=== PATIENT | female | born 1995 | race Caucasian/White ===

== ENCOUNTER 2017-03-28 08:38 | Outpatient (CLI) | payer OTHER ==
[~2017-03-28] VITALS: Ht 165.1 cm; Wt 82.7 kg
== END 2017-03-28 09:11 | disposition home or self-care (01) ==
LOC: LDOP 08:38
PROVIDERS: ATTEND Obstetrics & Gynecology
DX: O36.8120 Decreased fetal movements, second trimester, not applicable or unspecified (principal); Z3A.27 27 weeks gestation of pregnancy
CPT/HCPCS: 59025; 99201; G0463

== ENCOUNTER 2017-05-08 09:25 | Outpatient (CLI) | payer OTHER | END 2017-05-08 13:32 | disposition home or self-care (01) | LOC: LDOP 09:25 | PROVIDERS: ATTEND Obstetrics & Gynecology | DX: O36.8130 Decreased fetal movements, third trimester, not applicable or unspecified (principal); Z3A.33 33 weeks gestation of pregnancy | CPT/HCPCS: 59025; 76819; 99201; G0463 ==

== ENCOUNTER 2017-05-26 07:00 | Outpatient (CLI) | payer OTHER ==
[~2017-05-26] VITALS: Ht 162.6 cm; Wt 86.3 kg
[2017-05-26 07:14] VITALS: BP 119/77
[2017-05-26 08:12] LABS: AMNISURE POSITIVE (NEGATIVE)
[2017-05-26] MEDS: LACTATED RINGERS 1,000 ML IV SCH ×2 (10:09→12:37)
[2017-05-26] MEDS ORDERED: BETAMETHASONE 6 MG/ML, 5ML IM ONE ×2 (11:29→11:30)
== END 2017-05-26 16:00 | disposition home or self-care (01) ==
LOC: LDOP 07:00
PROVIDERS: ATTEND Obstetrics & Gynecology
DX: Z3A.35 35 weeks gestation of pregnancy (principal); O42.913 Preterm premature rupture of membranes, unspecified as to length of time between rupture and onset of labor, third trimester
CPT/HCPCS: 59025; 76815; 84112; 87081; 89060; 96360; 96361; 99211; J0702; J7120; G0463; Q0114

== ENCOUNTER 2017-05-27 11:31 | Inpatient (IN) | payer OTHER ==
[~2017-05-27] VITALS: Ht 162.6 cm; Wt 86.3 kg
[2017-05-27 11:37] VITALS: BP 105/59
[2017-05-27] MEDS ORDERED: BETAMETHASONE 6 MG/ML, 5ML IM ONE (12:00)
[2017-05-27] MEDS ORDERED: NEWBORN KIT ONE (17:29)
[2017-05-27] MEDS ORDERED: OXYTOCIN 30U/ 0.9% NaCL 500ML 500 ML IV SCH (17:33)
[2017-05-27] MEDS ORDERED: SODIUM CITRATE/CITRIC ACID 30 ML UDC ONE (17:33)
[2017-05-27] MEDS ORDERED: LACTATED RINGERS 1,000 ML IV SCH ×2 (17:33→18:00)
[2017-05-27] MEDS ORDERED: METOCLOPRAMIDE 5 MG/ML, 2ML ONE (17:34)
[2017-05-27] MEDS ORDERED: OXYTOCIN 30U/ 0.9% NaCL 500ML 500 ML ONE (17:34)
[2017-05-27 17:57] LABS: BASOPHILS # (AUTO) 0.03 x10^3/uL (0-0.1); BASOPHILS % (AUTO) 0 % (0-1); EOSINOPHILS % (AUTO) 0 % (1-7); LYMPHOCYTES # (AUTO) 1.06 x10^3/uL (1-3.4); LYMPHOCYTES % (AUTO) 10 % (22-44); MD NO; MEAN CORPUSCULAR HEMOGLOBIN 30.3 pg (27.0-34.8); MEAN CORPUSCULAR HGB CONC 33.9 g/dL (32.4-35.8); MEAN CORPUSCULAR VOLUME 89.2 fL (80-100); MEAN PLATELET VOLUME 8.6 fL (7.4-10.4); MONOCYTES # (AUTO) 0.33 x10^3/uL (0.2-0.8); MONOCYTES % (AUTO) 3 % (2-9); NEUTROPHILS % (AUTO) 87 % (42-75); PLATELET COUNT 218 x10^3/uL (130-400); RED BLOOD COUNT 3.98 x10^6/uL (3.82-5.3); RED CELL DISTRIBUTION WIDTH 12.6 % (9.6-15.2)
[2017-05-27] MEDS ORDERED: SODIUM CHLORIDE 0.9% PF 10ML ONE ×2 (17:58)
[2017-05-27] MEDS ORDERED: ONDANSETRON 2MG/ML, 2ML ONE (17:58)
[2017-05-27] MEDS ORDERED: CEFAZOLIN 1,000 MG ONE (17:58)
[2017-05-27] MEDS ORDERED: OXYTOCIN 10 UNITS/ML, 1ML ONE (17:58)
[2017-05-27] MEDS ORDERED: FENTANYL PF 100 MCG/2ML ONE (17:58)
[2017-05-27] MEDS ORDERED: SODIUM CITRATE/CITRIC ACID 30 ML UDC PO ONE (18:00)
[2017-05-27] MEDS ORDERED: METOCLOPRAMIDE 5 MG/ML, 2ML IV ONE (18:00)
[2017-05-27] MEDS ORDERED: LACTATED RINGERS 1,000 ML IVBOLUS ONE (18:00)
[2017-05-27] MEDS ORDERED: HYDROmorphone 2 MG/ML, 1ML ONE (18:15)
[2017-05-27] MEDS: LACTATED RINGERS 1,000 ML IV SCH ×2 (19:10)
[2017-05-27] MEDS: OXYTOCIN 30U/ 0.9% NaCL 500ML 500 ML IV SCH (19:10)
[2017-05-27] MEDS ORDERED: DOCUSATE 100 MG CAPSULE PO PRN (19:30)
[2017-05-27] MEDS ORDERED: morphine SULFATE 10 MG/ML, 1ML IVPush PRN ×2 (19:30)
[2017-05-27] MEDS ORDERED: ACETAMINOPHEN 325 MG TABLET PO PRN (19:30)
[2017-05-27] MEDS ORDERED: METHYLERGONOVINE 0.2 MG/ML IM PRN (19:30)
[2017-05-27] MEDS ORDERED: ONDANSETRON 2MG/ML, 2ML IV PRN (19:30)
[2017-05-27] MEDS ORDERED: CARBOPROST TROMETHAMINE 250 MCG/ML, 1ML IM PRN (19:30)
[2017-05-27] MEDS ORDERED: MISOPROSTOL 200 MCG TABLET PR PRN (19:30)
[2017-05-27] MEDS ORDERED: IBUPROFEN 600 MG TABLET ONE (20:28)
[2017-05-27] MEDS ORDERED: OXYcodone/APAP 5/325MG TABLET ONE (20:29)
[2017-05-27] MEDS: OXYcodone/APAP 5/325MG TABLET PO PRN (20:30)
[2017-05-27] MEDS: IBUPROFEN 600 MG TABLET PO PRN (20:30)
[2017-05-27 21:10] VITALS: BP 123/82
[2017-05-28] VITALS: BP 111/63
[2017-05-28] MEDS: IBUPROFEN 600 MG TABLET PO PRN ×4 (02:40→22:37)
[2017-05-28] MEDS: LACTATED RINGERS 1,000 ML IV SCH ×2 (03:10→03:14)
[2017-05-28] MEDS: OXYTOCIN 30U/ 0.9% NaCL 500ML 500 ML IV SCH (03:15)
[2017-05-28] MEDS: OXYcodone/APAP 5/325MG TABLET PO PRN ×6 (03:53→21:30)
[2017-05-28 03:57] VITALS: BP 115/70
[2017-05-28 05:45] LABS: MEAN CORPUSCULAR HEMOGLOBIN 30.2 pg (27.0-34.8); MEAN CORPUSCULAR HGB CONC 33.9 g/dL (32.4-35.8); MEAN PLATELET VOLUME 8.8 fL (7.4-10.4); PLATELET COUNT 228 x10^3/uL (130-400); RED BLOOD COUNT 3.91 x10^6/uL (3.82-5.3); RED CELL DISTRIBUTION WIDTH 12.6 % (9.6-15.2)
[2017-05-28 07:06] LABS: BASOPHILS # (AUTO) 0.05 x10^3/uL (0-0.1); BASOPHILS % (AUTO) 0 % (0-1); EOSINOPHILS % (AUTO) 0 % (1-7); LYMPHOCYTES # (AUTO) 1.43 x10^3/uL (1-3.4); LYMPHOCYTES % (AUTO) 9 % (22-44); MD MORPH REVIEW ONLY; MONOCYTES # (AUTO) 1.23 x10^3/uL (0.2-0.8); MONOCYTES % (AUTO) 8 % (2-9); NEUTROPHILS % (AUTO) 82 % (42-75)
[2017-05-28 07:28] LABS: <PLATELET ESTIMATE> ADEQUATE; <PLT MORPHOLOGY> NORMAL PLT MORPH
[2017-05-28] MEDS ORDERED: PRENATAL VIT/IRON/FA 1 EACH TABLET PO SCH (09:00)
[2017-05-28 09:20] VITALS: BP 108/68
[2017-05-28 12:30] VITALS: BP 116/71
[2017-05-28] MEDS ORDERED: METHYLERGONOVINE 0.2 MG/ML IM PRN (16:00)
[2017-05-28] MEDS ORDERED: OXYcodone/APAP 5/325MG TABLET PO PRN (16:00)
[2017-05-28] MEDS ORDERED: MEASLES,MUMPS&RUBELLA VACC/PF 0.5 ML SQ-VACC PRN (16:00)
[2017-05-28] MEDS ORDERED: MORPHINE SULFATE 4 MG/ML, 1ML IVPush PRN ×2 (16:00)
[2017-05-28] MEDS ORDERED: MISOPROSTOL 200 MCG TABLET PR ONE (16:00)
[2017-05-28] MEDS ORDERED: DIPH,PERTUSS(ACELL),TET VAC/PF NC IM-VACC PRN (16:00)
[2017-05-28 19:05] VITALS: BP 111/67
[2017-05-28] MEDS: DOCUSATE 100 MG CAPSULE PO PRN (21:30)
[2017-05-29] MEDS: OXYcodone/APAP 5/325MG TABLET PO PRN ×3 (02:40→15:54)
[2017-05-29] MEDS ORDERED: IBUP-1222 PO (05:42)
[2017-05-29] MEDS ORDERED: OXYC-302 PO (05:42)
[2017-05-29] MEDS ORDERED: SENN-52 PO (05:43)
[2017-05-29 07:45] VITALS: BP 115/79
[2017-05-29] MEDS: IBUPROFEN 600 MG TABLET PO PRN ×2 (08:10→15:54)
[2017-05-29] MEDS: DOCUSATE 100 MG CAPSULE PO PRN (08:13)
[2017-05-29] MEDS ORDERED: PRENATAL VIT/IRON/FA 1 EACH TABLET PO SCH (09:00)
== END 2017-05-29 16:44 | disposition home or self-care (01) | DRG 765 ==
LOC: LDOP 11:31 → LDIP 12:31 → OBSVTOIN 17:30 → LDIP 17:38 → NICU 18:50 → 2NW 21:02 → UNDODISIN 05-28 15:05
PROVIDERS: ADMIT Obstetrics & Gynecology; ATTEND Obstetrics & Gynecology
PROC: 10D00Z1 Extraction of Products of Conception, Low, Open Approach (ICD-10-PCS; principal; 2017-05-28)
PROC: 3E0234Z Introduction of Serum, Toxoid and Vaccine into Muscle, Percutaneous Approach (ICD-10-PCS; 2017-05-28)
DX: O76 Abnormality in fetal heart rate and rhythm complicating labor and delivery (principal); O60.14X0 Preterm labor third trimester with preterm delivery third trimester, not applicable or unspecified; O77.0 Labor and delivery complicated by meconium in amniotic fluid; Z37.0 Single live birth; Z3A.35 35 weeks gestation of pregnancy; Z23 Encounter for immunization
CPT/HCPCS: 36415; 76819; 82803; 85025; 86850; 86900; 88307; 90715; G0378; J0690; J0702; J2405; J3010; J2590; J7120

== ENCOUNTER 2018-03-14 20:29 | Emergency (ER) | payer MEDICAID, OTHER ==
[~2018-03-14] VITALS: Ht 165.1 cm; Wt 89.8 kg
[~2018-03-14 20:29] MED LIST: IBUP-1222 PO; OXYC-302 PO; SENN-52 PO
[2018-03-14] MEDS ORDERED: ACETAMINOPHEN 500 MG TABLET ONE (20:35)
[2018-03-14] MEDS ORDERED: ACETAMINOPHEN 325 MG TABLET ONE (20:44)
[2018-03-14] MEDS ORDERED: ACETAMINOPHEN 325 MG TABLET PO ONE (21:00)
[2018-03-14 21:14] LABS: BASOPHILS # (AUTO) 0.05 x10^3/uL (0-0.1); BASOPHILS % (AUTO) 1 % (0-1); EOSINOPHILS # (AUTO) 0.05 x10^3/uL (0-0.4); EOSINOPHILS % (AUTO) 1 % (1-7); LYMPHOCYTES # (AUTO) 2.07 x10^3/uL (1-3.4); LYMPHOCYTES % (AUTO) 26 % (22-44); MD NO; MEAN CORPUSCULAR HEMOGLOBIN 30.6 pg (27.0-34.8); MEAN CORPUSCULAR HGB CONC 34.3 g/dL (32.4-35.8); MEAN PLATELET VOLUME 9.1 fL (7.4-10.4); MONOCYTES # (AUTO) 0.82 x10^3/uL (0.2-0.8); MONOCYTES % (AUTO) 10 % (2-9); NEUTROPHILS # (AUTO) 4.98 x10^3/uL (1.8-6.8); NEUTROPHILS % (AUTO) 63 % (42-75); PLATELET COUNT 248 x10^3/uL (130-400); RED BLOOD COUNT 4.22 x10^6/uL (3.82-5.3); RED CELL DISTRIBUTION WIDTH 13.3 % (9.6-15.2)
[2018-03-14] MEDS ORDERED: PROCHLORPERAZINE 5 MG/ML, 2ML ONE (21:20)
[2018-03-14] MEDS ORDERED: DIPHENHYDRAMINE 50 MG/ML, 1ML ONE (21:20)
[2018-03-14 21:21] LABS: ALANINE AMINOTRANSFERASE 23 U/L (12-78); ALBUMIN 2.8 g/dL (3.4-5.0); ANION GAP 7 mmol/L (5-15); CALCIUM 8.5 mg/dL (8.5-10.1); CHLORIDE 109 mmol/L (98-107)
--- NOTE | 2018-03-14 21:22 | NUR ---
IV ACCESS OBTAINED. PT MEDICATED PER MAY.
[2018-03-14 21:27] LABS: ALKALINE PHOSPHATASE 75 U/L (45-117); BILIRUBIN,TOTAL 0.2 mg/dL (0.2-1.0); TOTAL PROTEIN 6.6 g/dL (6.4-8.2)
[2018-03-14] MEDS ORDERED: DIPHENHYDRAMINE 50 MG/ML, 1ML IVPush ONE (21:30)
[2018-03-14] MEDS ORDERED: PROCHLORPERAZINE 5 MG/ML, 2ML IVPush ONE (21:30)
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
--- NOTE | 2018-03-14 21:53 | NUR ---
PT STATES THAT SHE "DOES NOT LIKE THE FEELING OF THE MEDICATION". STATES "I FEEL BETTER AND I WANT TO GO HOME RIGHT NOW". DR AHUMADA NOTIFIED OF PT WISHES TO LEAVE.
--- NOTE | 2018-03-14 22:16 | NUR ---
PT D/C WITH D/C SUMMARY. ALL QUESTIONS ANSWERED. PT STATES THAT HER HEADACHE IS GONE AND SHE FEELS BETTER. PT DENIES ANY OTHER NEEDS PERTAINING TO THIS VISIT. PT D/C HOME IN CARE OF HER AND AMULATES TO REGISTRATION DESK WITH STEADY GAIT.
[2018-03-14 22:17] VITALS: BP 144/79
== END 2018-03-14 22:19 | disposition home or self-care (01) ==
LOC: ED 22:13
DX: O26.892 Other specified pregnancy related conditions, second trimester (principal); R51 Headache; Z3A.20 20 weeks gestation of pregnancy
CPT/HCPCS: 36415; 80053; 85025; 96374; 96375; 99283; J0780; J1200

== ENCOUNTER 2018-07-21 18:45 | Emergency (ER) | payer MEDICAID ==
[~2018-07-21] VITALS: Ht 165.1 cm; Wt 85.9 kg
[2018-07-21 18:50] VITALS: BP 111/77
[2018-07-21] MEDS ORDERED: LIDOCAINE-MPF 1%, 5ML ONE (19:11)
[2018-07-21] MEDS ORDERED: LIDOCAINE-MPF 1%, 5ML INFIL ONE (19:30)
[2018-07-21] MEDS ORDERED: BACITRACIN ZINC OINT 500U/GM, 0.9 GM ONE (19:35)
== END 2018-07-21 19:45 | disposition home or self-care (01) ==
LOC: ED 19:00
DX: S61.211A Laceration without foreign body of left index finger without damage to nail, initial encounter (principal); Z98.890 Other specified postprocedural states; W26.0XXA Contact with knife, initial encounter; Y93.89 Activity, other specified; Y92.090 Kitchen in other non-institutional residence as the place of occurrence of the external cause; Y99.8 Other external cause status
CPT/HCPCS: 12001; 99283

== ENCOUNTER 2020-03-31 11:16 | Emergency (ER) | payer MEDICAID, OTHER ==
[~2020-03-31] VITALS: Ht 165.1 cm; Wt 67.6 kg
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
[2020-03-31 13:15] VITALS: BP 95/62
--- NOTE | 2020-03-31 13:20 | NUR ---
D/C INSTRUCTIONS, MEDS & F/U APPT RV'WD WITH PT, SHE VERBALIZES UNDERSTANDING. INSTRUCTED PT TO RETURN TO ED FOR ANY WORSENING OR CONCERNING SYMPTOMS. AMBULATED OUT OF ED WITH FAMILY WITHOUT DIFFICULTY.
== END 2020-03-31 13:27 ==
LOC: ED 12:30
DX: O9A.211 Injury, poisoning and certain other consequences of external causes complicating pregnancy, first trimester (principal); O26.891 Other specified pregnancy related conditions, first trimester; S20.212A Contusion of left front wall of thorax, initial encounter; M25.512 Pain in left shoulder; Z3A.01 Less than 8 weeks gestation of pregnancy; V59.49XA Driver of pick-up truck or van injured in collision with other motor vehicles in traffic accident, initial encounter; Y93.89 Activity, other specified; Y92.488 Other paved roadways as the place of occurrence of the external cause; Y99.8 Other external cause status
CPT/HCPCS: 99282

== ENCOUNTER 2020-11-24 10:40 | Inpatient (IN) | payer MEDICAID, OTHER ==
[~2020-11-24] VITALS: Ht 162.6 cm; Wt 75.0 kg
[~2020-11-24 10:40] MED LIST changes: -OXYC-302 PO; +OXYC1TAB12 PO
[2020-11-24] MEDS ORDERED: LACTATED RINGERS 1,000 ML IVBOLUS ONE (11:00)
[2020-11-24] MEDS ORDERED: SODIUM CITRATE/CITRIC ACID 15 ML UDC ONE (11:00)
[2020-11-24] MEDS ORDERED: NEWBORN KIT ONE (11:00)
[2020-11-24] MEDS ORDERED: METOCLOPRAMIDE 5 MG/ML, 2ML ONE (11:00)
[2020-11-24] MEDS ORDERED: FENTANYL PF 100 MCG/2ML ONE (11:43)
[2020-11-24] MEDS ORDERED: KETOROLAC 30 MG/1 ML ONE (11:44)
[2020-11-24] MEDS: LACTATED RINGERS 1,000 ML IV SCH ×6 (11:44→22:30)
[2020-11-24] MEDS ORDERED: CEFAZOLIN 1,000 MG ONE ×2 (11:45)
[2020-11-24] MEDS ORDERED: OXYTOCIN 10 UNITS/ML, 1ML ONE ×4 (11:45)
[2020-11-24 11:53] LABS: BASOPHILS % (AUTO) 1 % (0-1); EOSINOPHILS % (AUTO) 0 % (1-7); LYMPHOCYTES % (AUTO) 26 % (22-44); MEAN CORPUSCULAR HEMOGLOBIN 31.2 pg (27.0-34.8); MEAN CORPUSCULAR HGB CONC 34.2 g/dL (32.4-35.8); MONOCYTES % (AUTO) 11 % (2-9); NEUTROPHILS % (AUTO) 63 % (42-75); PLATELET COUNT 171 x10^3/uL (130-400); RED BLOOD COUNT 3.81 x10^6/uL (3.82-5.3)
[2020-11-24] MEDS ORDERED: SODIUM CITRATE/CITRIC ACID 30 ML UDC PO ONE (12:00)
[2020-11-24] MEDS ORDERED: METOCLOPRAMIDE 5 MG/ML, 2ML IV ONE (12:00)
[2020-11-24] MEDS ORDERED: ACETAMINOPHEN 325 MG TABLET PO PRN ×2 (12:30→14:00)
[2020-11-24] MEDS ORDERED: MISOPROSTOL 200 MCG TABLET PR PRN (12:30)
[2020-11-24] MEDS ORDERED: MORPHINE SULFATE 4 MG/ML, 1ML IVPush PRN (12:30)
[2020-11-24] MEDS ORDERED: METHYLERGONOVINE 0.2 MG/ML IM PRN (12:30)
[2020-11-24] MEDS ORDERED: morphine SULFATE 10 MG/ML, 1ML IVPush PRN (12:30)
[2020-11-24] MEDS ORDERED: ONDANSETRON 2MG/ML, 2ML IV PRN (12:30)
[2020-11-24] MEDS ORDERED: CARBOPROST TROMETHAMINE 250 MCG/ML, 1ML IM PRN (12:30)
[2020-11-24] MEDS ORDERED: PHENYLEPHRINE 10 MG/ML ONE (13:17)
[2020-11-24] MEDS ORDERED: EPHEDRINE 50 MG/ML, 1ML IVPush PRN (14:00)
[2020-11-24] MEDS ORDERED: OXYcodone 5 MG/5 ML ORAL.SOL UDC PO PRN (14:00)
[2020-11-24] MEDS ORDERED: HYDROmorphone 1 MG/ML, 1ML INJ IVPush PRN (14:00)
[2020-11-24] MEDS ORDERED: DIPHENHYDRAMINE 50 MG/ML, 1ML IVPush PRN (14:00)
[2020-11-24] MEDS ORDERED: FENTANYL PF 100 MCG/2ML IV PRN (14:00)
[2020-11-24] MEDS ORDERED: ONDANSETRON 2MG/ML, 2ML IVPush PRN (14:00)
[2020-11-24] MEDS: OXYTOCIN 30U/ 0.9% NaCL 500ML 500 ML IV SCH ×2 (15:03→22:30)
[2020-11-24 16:00] VITALS: BP 103/69
[2020-11-24] MEDS: SIMETHICONE 80 MG CHEW TAB PO PRN (16:41)
[2020-11-24] MEDS: OXYcodone/APAP 5/325MG TABLET PO PRN ×3 (17:35→22:24)
[2020-11-24 20:00] VITALS: BP 106/62
[2020-11-24] MEDS: DOCUSATE 100 MG CAPSULE PO PRN (20:24)
[2020-11-24] MEDS: KETOROLAC 30 MG/1 ML IVPush SCH (20:24)
[2020-11-24] MEDS ORDERED: CALCIUM CARBONATE 500 MG TAB.CHEW PO PRN (20:30)
[2020-11-24 23:55] VITALS: BP 97/60
[2020-11-25 01:02] LABS: BASOPHILS % (AUTO) 1 % (0-1); EOSINOPHILS % (AUTO) 0 % (1-7); LYMPHOCYTES % (AUTO) 21 % (22-44); MEAN CORPUSCULAR HEMOGLOBIN 31.3 pg (27.0-34.8); MEAN CORPUSCULAR HGB CONC 34.2 g/dL (32.4-35.8); MEAN PLATELET VOLUME 9.1 fL (7.4-10.4); MONOCYTES % (AUTO) 11 % (2-9); NEUTROPHILS % (AUTO) 66 % (42-75); PLATELET COUNT 167 x10^3/uL (130-400); RED BLOOD COUNT 3.77 x10^6/uL (3.82-5.3)
[2020-11-25] MEDS: KETOROLAC 30 MG/1 ML IVPush SCH ×4 (02:30→20:40)
[2020-11-25] MEDS: OXYcodone/APAP 5/325MG TABLET PO PRN ×5 (02:31→20:40)
[2020-11-25] MEDS: LACTATED RINGERS 1,000 ML IV SCH ×6 (04:00→18:30)
[2020-11-25 04:30] VITALS: BP 97/64
[2020-11-25 07:30] VITALS: BP 98/60
[2020-11-25] MEDS: OXYTOCIN 30U/ 0.9% NaCL 500ML 500 ML IV SCH ×2 (08:30→18:30)
[2020-11-25] MEDS: SIMETHICONE 80 MG CHEW TAB PO PRN (08:37)
[2020-11-25] MEDS: PRENATAL VIT/IRON/FA 1 EACH TABLET PO SCH (08:37)
[2020-11-25] MEDS: DOCUSATE 100 MG CAPSULE PO PRN ×2 (08:37→20:40)
[2020-11-25 12:30] VITALS: BP 96/60
[2020-11-25 20:30] VITALS: BP 111/73
[2020-11-26] MEDS: OXYcodone/APAP 5/325MG TABLET PO PRN ×3 (02:08→12:39)
[2020-11-26] MEDS: KETOROLAC 30 MG/1 ML IVPush SCH (02:08)
[2020-11-26 08:00] VITALS: BP 106/63
[2020-11-26] MEDS: SIMETHICONE 80 MG CHEW TAB PO PRN (08:18)
[2020-11-26] MEDS: PRENATAL VIT/IRON/FA 1 EACH TABLET PO SCH (08:18)
[2020-11-26] MEDS: DOCUSATE 100 MG CAPSULE PO PRN (08:19)
[2020-11-26] MEDS: IBUPROFEN 600 MG TABLET PO PRN ×2 (08:24→14:24)
[2020-11-26 11:28] VITALS: BP 106/63
[2020-11-26] MEDS ORDERED: SENN-52 PO ×3 (12:22→12:52)
[2020-11-26] MEDS ORDERED: OXYC1TAB12 PO ×2 (12:23→12:31)
[2020-11-26] MEDS ORDERED: IBUP-1222 PO ×2 (12:23→12:31)
== END 2020-11-26 14:40 | disposition home or self-care (01) | DRG 787 ==
LOC: LDIP 10:40 → 2NW 15:54
PROVIDERS: ADMIT Obstetrics & Gynecology; ATTEND Obstetrics & Gynecology
PROC: 10D00Z1 Extraction of Products of Conception, Low, Open Approach (ICD-10-PCS; principal; 2020-11-24)
DX: O34.211 Maternal care for low transverse scar from previous cesarean delivery (principal); O98.32 Other infections with a predominantly sexual mode of transmission complicating childbirth; A60.00 Herpesviral infection of urogenital system, unspecified; O76 Abnormality in fetal heart rate and rhythm complicating labor and delivery; Z37.0 Single live birth; Z3A.39 39 weeks gestation of pregnancy; Z20.822 Contact with and (suspected) exposure to COVID-19
CPT/HCPCS: 36415; 85025; 86592; 86850; 86900; 87635; G0378; J0690; J1885; J3010; J2370; J2590; J2765; J7120